=== PATIENT | male | born 1990 | race African-American/Black ===

== ENCOUNTER 2019-11-11 10:31 | Emergency (ER) | payer OTHER ==
[~2019-11-11] VITALS: Ht 175.3 cm; Wt 81.0 kg
[~2019-11-11 10:31] MED LIST: NOCURR
[2019-11-11] MEDS ORDERED: ACETAMINOPHEN 500 MG TABLET PO ONE (12:15)
[2019-11-11 12:30] VITALS: BP 130/69
== END 2019-11-11 13:31 | disposition home or self-care (01) ==
LOC: EMS 10:32
DX: K52.9 Noninfective gastroenteritis and colitis, unspecified (principal)